=== PATIENT | male | born 1945 | race Caucasian/White ===

== ENCOUNTER 2018-11-10 11:43 | Emergency (ER) | payer MEDICARE ==
[~2018-11-10] VITALS: Ht 172.7 cm; Wt 49.9 kg
[2018-11-10] MEDS ORDERED: LISINOPRIL10 MG PO (12:04)
[2018-11-10] MEDS ORDERED: ONDANSETRON ODT4 MG PO (12:05)
[2018-11-10] MEDS ORDERED: MULTI VITAMIN1 EACH PO (12:05)
[2018-11-10] MEDS ORDERED: FLOMAX0.4 MG PO (12:06)
[2018-11-10] MEDS ORDERED: ALLOPURINOL300 MG PO (12:06)
[2018-11-10] MEDS ORDERED: LOSARTAN POTASS50 MG PO (12:07)
[2018-11-10] MEDS ORDERED: METOPROLOL SUCC25 MG PO (12:07)
[2018-11-10] MEDS ORDERED: ATROVENT HFA12.9 GM INH (12:08)
[2018-11-10] MEDS ORDERED: BREO ELLIPTA 21 EACH INH (12:08)
[2018-11-10] MEDS ORDERED: PROTONIX40 MG PO (12:09)
--- NOTE | 2018-11-10 12:44 | EKG ---
[facility] [address] [facility] [place] [address] Signed Sinus tachycardia Otherwise normal ECG No previous ECGs available Confirmed by LISA BURT MD ([id number]) on 11/10/2018 12:44:08 PM Electronically Signed By: LISA BURT MD 11/10/18 1244 PATIENT NAME: ADRYAN MCKINNEY DAVI Electrocardiogram DATE OF : 43 PHYSICIAN: LISA BURT MD REPORT #: [id number] REPORT IS CONFIDENTIAL AND NOT TO BE RELEASED WITHOUT AUTHORIZATION
--- OUTSIDE RECORDS SUMMARY | 2018-11-10 13:24 | XMS ---
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 E.D. VISIT COUNT (12 MO.) 1 [facility] TOTAL 1 NOTE: Visits indicate total known visits. ED/UCC VISIT TRACKING (12 MO.) 11/10/2018 12:[address] [facility] TYPE: Emergency COMPLAINT: - ABD PAIN INPATIENT VISIT TRACKING (12 MO.) No inpatient visits to display in this time frame [email or web address]
== END 2018-11-10 20:17 | disposition short-term general hospital (02) ==
LOC: ED 11:43
DX: E86.0 Dehydration (principal); R53.1 Weakness; R00.0 Tachycardia, unspecified; F17.200 Nicotine dependence, unspecified, uncomplicated; Z88.2 Allergy status to sulfonamides; Z79.899 Other long term (current) drug therapy
CPT/HCPCS: 36415; 71045; 74176; 80053; 81001; 83605; 83880; 84484; 85025; 85610; 93005; 93010; 94640; 96361; 96374; 96375; 99285-25; 99406; J2543; J7030; J7060; J7070